=== PATIENT | male | born 1955 | race Caucasian/White ===

== ENCOUNTER 2018-06-08 09:28 | Observation (INO) | payer BC ==
[~2018-06-08] VITALS: Ht 188 cm; Wt 119.4 kg
[2018-06-08] VITALS (10 sets, daily range): BP systolic 132–167; BP diastolic 78–107
[2018-06-08] MEDS ORDERED: ATEN50TA PO (09:55)
[2018-06-08] MEDS ORDERED: LOSA1TAB22 PO (09:58)
[2018-06-08] MEDS ORDERED: ASPI-612 PO (09:59)
[2018-06-08] MEDS ORDERED: ATOR40TA59 PO (10:00)
[2018-06-08] MEDS ORDERED: CYAN10005 PO (10:01)
[2018-06-08] MEDS ORDERED: CHOL100013 PO (10:01)
[2018-06-08 10:20] LABS: CALCIUM 9.2 mg/dL (8.5-10.1); CREATININE 0.7 mg/dL (0.7-1.3); GFR 113.9
[2018-06-08 10:30] LABS: PROTHROMBIN TIME PATIENT 12.3 SEC (11.7-14.0)
[2018-06-08 10:57] LABS: HEMATOCRIT 40.8 % (39.0-53.0); HEMOGLOBIN 13.7 g/dL (13.0-17.5); RED BLOOD COUNT 4.3 x10^6/uL (4.30-5.70); RED CELL DISTRIBUTION WIDTH 13.8 % (11.5-14.5); WHITE BLOOD COUNT 9.7 x10^3/uL (4.0-11.0)
[2018-06-08] MEDS ORDERED: LIDOCAINE 1% PF 2 ML VIAL. ONE (12:05)
[2018-06-08] MEDS ORDERED: fentaNYL PF VIAL 100 MCG/2 ML VIAL ONE (12:12)
[2018-06-08] MEDS ORDERED: LIDOCAINE 1% PF 30 ML VIAL. ONE (12:12)
[2018-06-08] MEDS ORDERED: MIDAZOLAM HCL/PF 2 MG/2 ML VIAL. ONE (12:12)
[2018-06-08] MEDS ORDERED: BIVALIRUDIN 250 MG VIAL. IV ONE ×2 (12:37→13:00)
[2018-06-08] MEDS ORDERED: PRASUGREL 10 MG TABLET. ONE (12:55)
[2018-06-08] MEDS ORDERED: ASPIRIN 325 MG TABLET ONE (12:55)
[2018-06-08] MEDS ORDERED: NITROGLYCERIN 200 MCG/2 ML SYRINGE FOR CATH/VASC LAB. ONE (12:58)
[2018-06-08] MEDS ORDERED: ASPIRIN 325 MG TABLET PO ONE (13:00)
[2018-06-08] MEDS ORDERED: MIDAZOLAM HCL/PF 2 MG/2 ML VIAL. IV ONE (13:00)
[2018-06-08] MEDS ORDERED: PRASUGREL 10 MG TABLET. PO ONE (13:00)
[2018-06-08] MEDS ORDERED: fentaNYL PF VIAL 100 MCG/2 ML VIAL IV ONE (13:00)
[2018-06-08] MEDS ORDERED: IOHEXOL 300 MG/ML 100ML VIAL. IART ONE (13:00)
[2018-06-08] MEDS ORDERED: NITROGLYCERIN 200 MCG/2 ML SYRINGE FOR CATH/VASC LAB. ICAR ONE (13:00)
[2018-06-08] MEDS ORDERED: CONTRAST GIVEN. MC PRN (13:00)
[2018-06-08] MEDS ORDERED: IV NORMAL SALINE 1000ML BAG 1,000 ML IV SCH (13:00)
[2018-06-08] MEDS ORDERED: LIDOCAINE 1% PF 30 ML VIAL. INJ ONE (13:00)
--- NOTE | 2018-06-08 13:27 | CARD ---
MR#: [id number] Date of Study: 06/08/2018 Ordering Physician: MARAL BOSS, Referring Physician: MARAL BOSS, Tech: RT Edison (R) APPROVED REPORT Technologist: RT Edison (R) Nurse: Whitney Hoffmann R.N. Procedure(s) performed: MODERATE SEDATION TIME: 46 MINUTES PROCEDURE NARRATIVE After explaining the risks and benefits of the procedure and alternatives, informed consent was obtai lilia. The patient was brought electively to the cardiac catheterization lab in a fasting state. A teodoro eout was performed confirming the patient's name, date of , procedure, and site of procedure. A ll necessary personnel were wearing the appropriate protective equipment and radiation monitor device s. (See nursing notes for medications administered). The right groin was sterilely prepped and drap ed in the usual fashion. The right groin was infiltrated with 10 mL of 2% lidocaine for subcutaneous anesthesia. A 6 F sheath was inserted into the right femoral artery without difficulty. Right and left coronary angiography was performed using a JR4 and JL4 catheter. Left ventricular end diastolic pressure was obtained with a pigtail catheter and pullback was performed after left ventriculography . HEMODYNAMICS: AO: 140/80 LVEDP 22 mm Hg No gradient on LV to aortic pullback. LEFT VENTRICULOGRAM: EF 55% Anterobasal: Normal. Anterolateral: Normal Apical: Normal Diaphragmatic: Normal Posterobasal: Normal *No significant mitral regurgitation or aortic insufficiency. CORONARY ANGIOGRAPHY: LM is a large caliber vessel with normal angiographic appearance. LAD is a large caliber vessel with a mid 95% stenosis. D1 is a moderate caliber vessel with normal angiographic appearance. LCx is a moderate caliber non-dominant vessel with normal angiographic appearance. OM1 is a moderate caliber vessel with normal angiographic appearance. RCA is a large caliber dominant vessel with normal angiographic appearance. RPDA is a moderate caliber vessels with normal angiographic appearance. INTERVENTIONAL TECHNIQUE: Based upon the presenting symptoms, angiographic findings an intervention was performed on the LAD. B ivalirudin was administered for anticoagulation. Through a 6Fr EBU 4.0 guide catheter, a 0.014'' Prow ater wire was used to cross the lesion. The lesion was angioplastied with a 3.0/12 mm balloon and ofelia nted with a 4.0/18 mm Resolute Pietro ALFREDO and post-dilated with a 4.0 mm NC balloon at [address]-PCI angiography demonstrated 0% residual stenosis with VALENTIN 3 flow and no evidence of guide or wir e related complications. The patient received Prasugrel 60mg and ASA 325mg. All catheter exchanges and advancements were performed over a guidewire. At case completion the righ t femoral sheath was removed and hemostasis was achieved with an Angioseal Device after limited femor al angiography confirmed adequate vessel size and anatomy. There were no acute complications. Conclusion 1. Normal LV systolic function. 2. 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 Consider lifelong DAPT. High dose statin therapy Risk factor modification Cardiac rehab referral. Signed by : Maral Boss, Electronically Approved : 06/08/2018 13:27:01
[2018-06-08] MEDS ORDERED: LABETALOL 20 MG/4 ML DISP.SYRIN. IVP PRN (16:15)
[2018-06-08] MEDS: hydroCHLOROthiazide 25 MG TABLET PO SCH (16:44)
[2018-06-08] MEDS: LOSARTAN POTASSIUM 50 MG TABLET. PO SCH (16:45)
[2018-06-08] MEDS ORDERED: ATORVASTATIN CALCIUM 40 MG TABLET. PO SCH (21:00)
[2018-06-09 03:00] VITALS: BP 147/69
[2018-06-09 07:00] VITALS: BP 120/59
[2018-06-09] MEDS ORDERED: ATENOLOL 50 MG TABLET. PO SCH (09:00)
[2018-06-09] MEDS ORDERED: NON FORMULARY ITEM (Losartan/Hydrochlorothiazide (Losartan-Hctz 100-25 Mg Tab) 1 TAB) PO SCH (09:00)
[2018-06-09] MEDS ORDERED: ASPIRIN ENTERIC COATED 81 MG TABLET.DR. PO SCH (09:00)
[2018-06-09] MEDS ORDERED: CYANOCOBALAMIN (VITAMIN B-12) 1,000 MCG TABLET. PO SCH (09:00)
[2018-06-09] MEDS ORDERED: CHOLECALCIFEROL (VITAMIN D3) 1,000 UNIT TABLET PO SCH (09:00)
[2018-06-09] MEDS: LOSARTAN POTASSIUM 50 MG TABLET. PO SCH (09:05)
[2018-06-09] MEDS: hydroCHLOROthiazide 25 MG TABLET PO SCH (09:05)
[2018-06-09] MEDS ORDERED: PRAS10TA9 PO (09:34)
--- NOTE | 2018-06-09 09:56 | PDOC3 ---
*Discharge Summary* Date of Admission: Jun 08, 2018 Date of Discharge: Jun 09, 2018 Admitting Diagnosis 1. unstable angina 2. hypertension 3. hyperlipidemia 4. morbid obesity 5. tobacco abuse Final Diagnosis 1. unstable angina 2. hypertension 3. hyperlipidemia 4. morbid obesity 5. tobacco abuse Procedures 06/08/[address] Phoebe Boss: HEMODYNAMICS: AO: 140/80 LVEDP 22 mm Hg No gradient on LV to aortic pullback. LEFT VENTRICULOGRAM: EF 55% Anterobasal: Normal. Anterolateral: Normal Apical: Normal Diaphragmatic: Normal Posterobasal: Normal *No significant mitral regurgitation or aortic insufficiency. CORONARY ANGIOGRAPHY: LM is a large caliber vessel with normal angiographic appearance. LAD is a large caliber vessel with a mid 95% stenosis. D1 is a moderate caliber vessel with normal angiographic appearance. LCx is a moderate caliber non-dominant vessel with normal angiographic appearance. OM1 is a moderate caliber vessel with normal angiographic appearance. RCA is a large caliber dominant vessel with normal angiographic appearance. RPDA is a moderate caliber vessels with normal angiographic appearance. INTERVENTIONAL TECHNIQUE: Based upon the presenting symptoms, angiographic findings an intervention was performed on the LAD. Bivalirudin was administered for anticoagulation. Through a 6Fr EBU 4.0 guide catheter, a 0.014'' Prowater wire was used to cross the lesion. The lesion was angioplastied with a 3.0/12 mm balloon and stented with a 4.0/18 mm Resolute Pietro ALFREDO and post-dilated with a 4.0 mm NC balloon at 18 rocio. Final post-PCI angiography demonstrated 0% residual stenosis with VALENTIN 3 flow and no evidence of guide or wire related complications. The patient received Prasugrel 60mg and ASA 325mg. All catheter exchanges and advancements were performed over a guidewire. At case completion the right femoral sheath was removed and hemostasis was achieved with an Angioseal Device after limited femoral angiography confirmed adequate vessel size and anatomy. There were no acute complications. Conclusion 1. Normal LV systolic function. 2. 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 Consider lifelong DAPT. High dose statin therapy Risk factor modification Cardiac rehab referral. Brief Hospital Course Mr. Carcamo is a 63 old male with dyspnea on exertion with progressive symptoms over the last year associated with burning in the left chest. Given multiple risk factors, cardiac catheterization was advised and he proceeded with this on 06/08/2018. Details are in the procedure report. Monitored overnight without complications or dysrhythmias. Right SCARF GLUER site without bruit or significant ecchymosis. DAPT X 12 months and possibly lifelong recommended. Diet: 2 gr sodium, Cardiac Home Meds Active Scripts Prasugrel Hcl (EFFIENT) 10 Mg Tablet, 10 MG PO DAILY08, #30 TAB 12 Refills Prov:SID MARTINEZ TREE SAPPER 06/09/18 Reported Medications Cyanocobalamin (Vitamin B-12) (VITAMIN B-12) 1,000 Mcg Tablet, 1 TAB PO DAILY, # 30 TAB 2 Refills 06/08/18 Cholecalciferol (Vitamin D3) (VITAMIN D) 1,000 Unit Capsule, 1 CAP PO DAILY, # 30 CAP 3 Refills 06/08/18 Atorvastatin Calcium (ATORVASTATIN CALCIUM) 40 Mg Tablet, 1 TAB PO QHS, #90 TAB 3 Refills 06/08/18 Aspirin (ASPIRIN EC) 81 Mg Tablet.dr, 1 TAB PO DAILY, #30 TAB 3 Refills 06/08/18 Losartan/Hydrochlorothiazide (LOSARTAN-HCTZ 100-25 MG TAB) 1 Each Tablet, 1 TAB PO DAILY, #30 TAB 5 Refills 06/08/18 Atenolol (ATENOLOL) 50 Mg Tablet, 1 TAB PO DAILY, #30 TAB 5 Refills 06/08/18 Scheduled Aspirin (Aspirin Ec), 1 TAB PO DAILY, (Reported) Atenolol (Atenolol), 1 TAB PO DAILY, (Reported) Atorvastatin Calcium (Atorvastatin Calcium), 1 TAB PO QHS, (Reported) Cholecalciferol (Vitamin D3) (Vitamin D), 1 CAP PO DAILY, (Reported) Cyanocobalamin (Vitamin B-12) (Vitamin B-12), 1 TAB PO DAILY, (Reported) Losartan/Hydrochlorothiazide (Losartan-Hctz 100-25 Mg Tab), 1 TAB PO DAILY, ( Reported) Prasugrel Hcl (Effient), 10 MG PO DAILY08 Scripts Prasugrel Hcl (EFFIENT) 10 Mg Tablet 10 MG PO DAILY08, #30 TAB 12 Refills Prov: SID MARTINEZ TREE SAPPER 9/21/18 FOLLOW UP APPOINTMENT: [address] Boss PCP 7-10 days Time Spent Total time spent with patient [] minutes for coordination of care, counseling, and education. SID MARTINEZ APRN Jun 09, 2018 09:56
[2018-06-09 10:33] VITALS: BP 132/76
== END 2018-06-09 12:09 | disposition home or self-care (01) ==
LOC: CCL 09:28 → 2 SOUTH 12:40 → INTOOBSV 12:40
PROVIDERS: ADMIT Internal Medicine Cardiovascular Disease; ATTEND Internal Medicine Cardiovascular Disease
DX: I25.110 Atherosclerotic heart disease of native coronary artery with unstable angina pectoris (principal); E78.5 Hyperlipidemia, unspecified; E66.01 Morbid (severe) obesity due to excess calories; I10 Essential (primary) hypertension; Z72.0 Tobacco use; Z79.82 Long term (current) use of aspirin; Z98.61 Coronary angioplasty status
CPT/HCPCS: 36415; 80048; 85027; 85610; 90471; 90756; 93458; 96374; 96375; C1725; C1769; C1771; C1874; C1887; C1892; C9600; G0269; G0378; G0379; J0583; J1644; J2250; J3010; J3490; J7030; Q9967; 92928; 99152; 99153; Q2035

== ENCOUNTER → 2021-01-09 | Outpatient (CLI) | payer MEDICARE, BC ==
[~2021-01-09] MED LIST: ASPI-886 PO; ATEN50TA PO; ATOR40TA59 PO; CHOL100013 PO; CYAN-25 PO; LOSA1TAB22 PO; PRAS10TA9 PO
--- NOTE | 2021-01-09 17:32 | CARD ---
MR#: [id number] Date of Study: 01/09/2021 Ordering Physician: MARAL PENN, Referring Physician: MARAL PENN, Tech: Tamika Crawford [facility] APPROVED REPORT EXAM: Two-dimensional and M-mode echocardiogram with Doppler and color Doppler. Other Information Quality : Technically LimitedHR: 55bpm Rhythm : NSRTechnically limited study due to body habitus.smoking. INDICATION Dyspnea RISK FACTORS Hypertension Obesity Hyperlipidemia Smoking 2D DIMENSIONS RVDd3.8 (2.9-3.5cm)Left Atrium(2D)3.9 (1.6-4.0cm) IVSd1.7 (0.7-1.1cm)Aortic Root(2D)3.9 (2.0-3.7cm) LVDd4.0 (3.9-5.9cm)LVOT Diameter2.8 (1.8-2.4cm) PWd1.5 (0.7-1.1cm)LVDs2.0 (2.5-4.0cm) FS (%) 49.3 %SV56.3 ml LVEF(%)81.1 (>50%) Aortic Valve AoV Peak Medhat.98.8cm/sAoV VTI21.7cm AO Peak GR.3.9mmHgLVOT Peak Medhat.82.9cm/s AO Mean GR.2mmHgAVA (VMAX)5.16cm2 Mitral Valve MV E Dygbitjv78.3cm/sMV DECEL [id number] MV A Gztjrrpn33.9cm/sE/A Ratio1.0 Tricuspid Valve TR P. Qjjzynul741rf/sTR Peak Gr.20mmHg LEFT VENTRICLE The left ventricle is normal size. There is moderate concentric left ventricular hypertrophy. The lef t ventricular systolic function is normal and the ejection fraction is within normal range. EF 55% Th ere is normal LV segmental wall motion. Tissue Doppler imaging reveals mild left ventricular diastoli c dysfunction. RIGHT VENTRICLE The right ventricle is normal size. There is normal right ventricular wall thickness. The right ventr icular systolic function is normal. ATRIA The left atrium size is normal. The right atrium size is normal. The interatrial septum is intact wit h no evidence for an atrial septal defect or patent foramen ovale as noted on 2-D or Doppler imaging. AORTIC VALVE The aortic valve is normal in structure and function. Doppler and Color Flow revealed no significant aortic regurgitation. There is no significant aortic valvular stenosis. MITRAL VALVE The mitral valve is normal in structure and function. There is no evidence of mitral valve prolapse. There is no mitral valve stenosis. Doppler and Color-flow revealed trace mitral regurgitation. TRICUSPID VALVE The tricuspid valve is normal in structure and function. Doppler and Color Flow revealed trace tricus pid regurgitation. Estimated PAP 25 mmHg. There is no tricuspid valve stenosis. PULMONIC VALVE Doppler and Color Flow revealed no pulmonic valvular regurgitation. There is no pulmonic valvular ofelia nosis. GREAT VESSELS The aortic root is normal in size. The IVC is normal in size and collapses >50% with inspiration. PERICARDIAL EFFUSION There is no evidence of significant pericardial effusion. Critical Notification Critical Value: No <Conclusion> There is moderate concentric left ventricular hypertrophy. The left ventricular systolic function is normal and the ejection fraction is within normal range. EF 55% There is normal LV segmental wall motion. Signed by : Maral Penn, Electronically Approved : 01/09/2021 17:31:40
== END ==
LOC: ECHO 10:44
PROVIDERS: ATTEND Internal Medicine Cardiovascular Disease
DX: I10 Essential (primary) hypertension (principal)
CPT/HCPCS: 93306; C8929

== ENCOUNTER → 2021-01-28 | Outpatient (CLI) | payer MEDICARE, BC ==
--- NOTE | 2021-01-28 12:17 | RAD ---
MR#: [id number] Date of Study: 01/28/2021 Ordering Physician: MARAL PENN, Referring Physician: MARAL PENN, Tech: Jermaine James MBA, RDMS, RVT, RDCS, RTR APPROVED REPORT Patient Location: OUT-PATIENT Indications tobacco abuse Duplex Results A/PTransverseLongitudinal Mid Aorta 2.6cm2.0cm Distal Aorta 1.8cm1.5cm Doppler VelocityWaveform Aorta Mid. 109.0 cm/sec Distal Aorta 119.0 cm/sec Findings Grayscale images of the abdominal aorta are technically limited due to bowel gas interference. The m id aorta measures 2.6 cm in the distal aorta measures 1.8 cm. There is moderate diffuse atherosclero tic plaque. No focal high-grade obstruction is noted. No clear evidence of aneurysm. Critical Notification Critical Value: No <Conclusion> 1. No evidence of abdominal aortic aneurysm. 2. Technically limited study. Signed by : Maral Penn, Electronically Approved : 01/28/2021 12:17:11
--- NOTE | 2021-01-28 12:19 | RAD ---
MR#: [id number] Date of Study: 01/28/2021 Ordering Physician: MARAL PENN, Referring Physician: MARAL PENN, Tech: Jermaine James MBA, RDMS, RVT, RDCS, RTR APPROVED REPORT Patient Location: OUT-PATIENT Laterality:Bilateral Indications Bruit Doppler Spectral Velocity Analysis Right Left pCCA 108/26 cm/spCCA 149/59 cm/s mCCA 145/38 cm/smCCA 100/22 cm/s dCCA 133/44 cm/sdCCA 115/40 cm/s Bulb 87/19 cm/sBulb 103/18 cm/s ECA 123/ cm/sECA 160/ cm/s pICA 89/36 cm/spICA 97/36 cm/s Javon 98/34 cm/smICA 89/41 cm/s dICA 94/36 cm/sdICA 71/37 cm/s Vert. 42/ cm/sVert. 58/ cm/s Subcl. 130/ cm/sSubcl. 88/ cm/s ICA/CCA 0.68ICA/CCA 0.65 Findings Grayscale images the bilateral carotid vessels demonstrates mild diffuse intimal hyperplasia. No sig nificant atherosclerotic plaque is noted. Spectral waveforms and color Doppler are overall consistent with 0 to less than 50% stenosis in the b ilateral internal carotid vessels. Based on velocity criteria there is moderate 50 to 69% stenosis i nvolving the bilateral common carotid arteries but this appears to be related to tortuosity as the di astolic velocities are fairly within normal limits. Normal ICA to CCA ratios bilaterally. Antegrade vertebral velocities bilaterally. Critical Notification Critical Value: No <Conclusion> 1. No significant carotid occlusive disease bilaterally. Signed by : Maral Penn, Electronically Approved : 01/28/2021 12:19:28
== END ==
LOC: US 06:47
PROVIDERS: ATTEND Internal Medicine Cardiovascular Disease
DX: I65.23 Occlusion and stenosis of bilateral carotid arteries (principal); I70.0 Atherosclerosis of aorta; Z72.0 Tobacco use
CPT/HCPCS: 76770; 93880

== ENCOUNTER → 2021-08-28 | Outpatient (CLI) | payer MEDICARE, BC ==
[~2021-08-28] MED LIST changes: +REGADENOSON 0.4 MG/5 ML DISP.SYRIN. IV ONE
--- NOTE | 2021-08-28 17:33 | RAD ---
MR#: [id number] Date of Study: 08/28/2021 Ordering Physician: MARAL BOSS, Referring Physician: MAKENZIE SANCHEZ Tech: DAVID Lassiter, ARRT (R) (N) APPROVED REPORT Test Type: Exercise Stress Nurse/Tech: Gamaliel Garnica RN Test Indications: CAD Cardiac History: stent 2018, HTN, decreased kidney function, Medications: Zocor Medical History: See Electronic Medical Record Resting ECG: SR, PAC Resting Heart Rate: 67 bpm Resting Blood Pressure: 134/83mmHg Pretest Chest Pain: None Nurse/Tech Notes Lungs cTA with slight wheeze noted, S1S2 Consent: The procedure was explained to the patient in lay terms. Informed consent was witnessed. Dom eout was entered into [employer]. History and Stress Test performed by RT Madison (R) (N) Stress Symptoms No chest pain or symptoms.Dyspnea POST EXERCISE Reason for Termination: Reached target heart rate Target HR: Yes Max HR: 147 bpm Exercise duration: 5:07 min:sec, 1 Stage Max Blood Pressure: 193/80mmHg Blood Pressure response to exercise: Normal blood pressure response during stress. Heart Rate response to exercise: normal response Chest Pain: No. Arrhythmia: No. ST Change: No. INTERPRETATION Stress EKG Conclusion: No evidence of stress induced EKG changes. Imaging Protocol IMAGE PROTOCOL: Rest Tc-99m/stress Tc-99m 1 day Rest: Stress: Viability: Radiopharm.Tc99m UxctqwskrCj99k Sestamibi Dose9.9mCi 33mCi Img Date 08/28/2021 08/28/2021 Inj-Img [id number]. 60min. Rest Admin Site:IV - Right AntecubitalAdministrator:LEYLA Dukes Stress Admin Site: IV - Right AntecubitalAdministrator: RT Madison (R)(N) STRESS DATA End Diast. Vol.101.0mlLVEDV index BSA40.0ml End Syst. Vol.23.0mlLVESV index BSA9.0ml Myocardial Nlmj661.0gEject. Nrzdbqyo99.0% Stress Scores Regional WT0.00Summed WT6.00 Regional WM0.00Summed WM0.00 The rest and stress images show normal perfusion, normal contraction and thickening. LV Perf. Quant 17 Seg. SSS0.00 17 Seg. SRS4.00 17 Seg. SDS0.00 Stress Defect Extent (% LAD)0.00Rest Defect Extent (% LAD)0.00Rev. Defect Extent (% LAD)0.00 Stress Defect Extent (% LCX) 0.00Rest Defect Extent (% LCX)7.50Rev. Defect Extent (% LCX)0.00 Stress Defect Extent (% RCA)0.00Rest Defect Extent (% RCA)6.70Rev. Defect Extent (% RCA)0.00 Stress Defect Extent (% LUZ)0.00Rest Defect Extent (% LUZ)4.60Rev. Defect Extent (% LUZ)0.00 Other Information Quality:Average Risk Assessment: Low Risk Conclusion 1. No evidence of EKG changes with stress testing. 2. Normal perfusion at stress/rest. 3. Low risk study. 4. EF > 60%. Signed by : Maral Boss, Electronically Approved : 08/28/2021 17:33:36
== END ==
LOC: NM 09:52
PROVIDERS: ATTEND Internal Medicine Cardiovascular Disease
DX: I25.10 Atherosclerotic heart disease of native coronary artery without angina pectoris (principal)
CPT/HCPCS: 78452; 93017; A9500